=== PATIENT | female | born 1985 | race Caucasian/White ===

== ENCOUNTER 2024-11-13 09:30 | Outpatient (CLI) | payer BC, SELFPAY ==
--- OUTSIDE RECORDS SUMMARY | 2024-11-13 09:54 | XMS_ITS | Encounter Summary ---
Author Organization [facility] Address [address] [place] [address] Phone Care Team Providers Care Legal Investigator Name Role Phone Unknown, Notinfile Primary Care Provider Unavail able Encounter Details Date Type Department Care Team (Late st Contact Info) Description 06/10/2019 Telephone [facility] Reproductive Endocrinology [address] [address] Danica Clayton MD [address] [address] Social History Tobacco Use Types Packs/Day Years Used Date Smoking Tobacco: Never Smokeless Tobacco: Never Alcohol Use Standard Drinks/Week Comments Yes 0 (1 standard drink = 0.6 oz pur e alcohol) AUDIT-C Answer Date Recorded Frequency of Alcohol Consumption Monthly or less 03/17/2019 Average Number of Drinks Not on file 019 Frequency of Binge Drinking Not on file 03/06 Comments Unknown Sex and Gender Information Value Date Recorded Sex Assigned at Not on file Legal Sex Female 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
--- OUTSIDE RECORDS SUMMARY | 2024-11-13 09:54 | XMS_ITS | Clinical Summary ---
Author Organization [facility] Address [address] [place] [address] Care Team Providers Care Dipper And Baker Name Role Phone Olga Butler PA-C Primary Care Provider [phone] Allergies Active Allergy Reactions Criticality Noted Date Comments Penicillins Hives 10/03/2019 Medications SKYRIZI PEN 150 MG/ML Solution Auto-injector 09/11/2022 Activ e Multiple Vitamin (MULTIVITAMIN ADULT OR) Take 1 tablet by mouth daily. Active Cholecalciferol (VITAMIN D-3 OR) Active venlafaxine XR (EFFEXOR-XR) 150 MG 24 hr capsule 1 capsule (150 mg total). 09/27/2023 Active Active Problems Problem Noted Date Diagnosed Date Abnormality of left breast on screening mammogra m 12/11/2023 Resolved Problems Problem Noted Date Diagnosed Date Resolved Date (HHS/HCC) 05/16/2020 05/17/20 20 Immunizations Name Administration Dates Next Due Afluria 36 MONTHS+ (Prefilled Syringe IIV4) 06/06 Hepatitis B 04/07/1998,10/28/1997,09/25/1997 Td, Adsorbed, Preservative F ree, Adult Use, Lf Unspecified 09/25/1997 Tdap (Boostrix) 03/12/2020 Family History Medical History Relation Comments Breast Cancer Maternal Aunt Breast Cancer Paternal Aunt Breast Cancer Paternal Grandmother Relation Status Comments Maternal Aunt Alive Paternal Aunt Alive Paternal Grandmother Social History Tobacco Use Types Packs/Day Years Used Date Smoking Tobacco: Never Smokeless Tobacco: Never Tobacco Cessation:Counseling Given: No Alcohol Use Standard Drinks/Week Comments Never 0 (1 standard drink = 0.6 oz pur e alcohol) AUDIT-C Answer Date Recorded Frequency of Alcohol Consumption Never 10/03/2019 Average Number of Drinks Not on file 020 Frequency of Binge Drinking Not on file 09/07 PHQ-2 Answer Date Recorded Patient Health Questionnaire-2 Score 0 11/17/2022 Comments No Sex and Gender Information Value Date Recorded Sex Assigned at Not on file Legal Sex Female 8:03 PM CDT Gender Identity Not on file Sexual Orientation Not on file Last Filed Vital Signs Vital Sign Reading Time Taken Comments Blood Pressure 146/92 07/22/2024 3:46 PM TECHNICAL ADJUSTER Pulse 87 07/22/2024 3:46 PM TECHNICAL ADJUSTER Temperature 36.7 C (98.1 F) 07/22/2024 3:46 PM TECHNICAL ADJUSTER Respiratory Rate 16 07/22/2024 3:46 PM TECHNICAL ADJUSTER Oxygen Saturation 100% 07/22/2024 3:46 PM TECHNICAL ADJUSTER Inhaled Oxygen Concentration - - Weight 80.3 kg (177 lb) 07/22/2024 3:46 PM TECHNICAL ADJUSTER Height 160 cm (5' 3 ) 01/20/2024 11:22 AM CDT Body Mass Index 31.35 01/20/2024 11:22 AM CDT Plan of Treatment Upcoming Encounters Date Type Department Care Team (Late st Contact Info) Description 01/22/2025 3:40 PM CDT Office Visit [facility] General Surgery - [place] [address] [place] [address], [address] [place] [phone] John Paul Cruz MD [address] [facility] [address] [place] [address] Health Maintenance Due Date Last Done Comments Cervical Cancer Screening Pap Smear (Age 30 to 64) Every 3 Years 1983 Annual Physical 1986 Hepatitis C 2001 Cervical Cancer Screening Pap with HPV Testing (Age 30 to 64) Every 5 Years 05/18/2022 05/18/2017 Cervical Cancer Screening with HPV 05/18/2022 COVID-19 Vaccine ( season) 2024 PHQ-2 (Physician [place]) 08/06/2024 11/17/2022 Mammogram Screening 07/10/2026 07/10/2024, 12/26/2023, 11/22/2023, Additional history exists DTaP, Tdap and Td Vaccines (3 - Td or Tdap) 03/12/2030 03/12/2020, 09/25/1997 Hepatitis B Vaccines Completed 04/07/1998, 10/28/1997, 09/25/1997 HPV Vaccines Aged Out No longer eligi ble based on patient's age to complete this topic Meningococcal B Vaccine Aged Out No l onger eligible based on patient's age to complete this topic Meningococcal Vaccine Aged Out No shravan wendy eligible based on patient's age to complete this topic Pneumococcal Vaccine: Pediatrics (0 to 5 Years) and At-Risk Patients (6 to 64 Years) Aged Out No longer eligible based on patient's age to complete this topic RSV Immunizations Under 20 Months Aged Out No longer eligible based on patient's age to complete this topic Procedures Procedure Name Priority Date/Time Associated Diagnosis Comments MG DIAG W YASMIN LT DIGI Routine 07/10/2024 3:13 PM TECHNICAL ADJUSTER Abnormality of left breast on screening mammogram HPV MRNA E6/E7 Routine 05/18/2017 5:37 PM CDT from Last 3 Months or Most Recently Relevant to Health Maintenance Results * MG DIAG W YASMIN LT DIGI (07/10/2024 3:13 PM TECHNICAL ADJUSTER) Anatomical Region Laterality Modality Breast Left Mammography, Rad iographic Imaging 07/10/2024 3:19 PM TECHNICAL ADJUSTER Impressions 07/10/2024 3:34 PM TECHNICAL ADJUSTER IMPRESSION: Stable left breast mass status post benign concordant biopsy with posterior clip drift. No mammographic or sonographic evidence of malignancy. RECOMMENDATION: Return to year screen in 6 monthsBilateral Findings, impression, and recommendation were discussed with the patient immediately following exam completion. OVERALL IMAGING ASSESSMENT: ACR BI-RADS 2 - BENIGN FINDING(S). Ordered By: JOHN PAUL CRUZ Interpreted By: Sang Cagle, 07/10/2024 3:19 PM Narrative 07/10/2024 3:34 PM TECHNICAL ADJUSTER [address] [address] EXAMINATION: MG OHARA W YASMIN LT DIGI, US BREAST LT BIRAD LTD [id number] INDICATIONS: Follow-up imaging TECHNIQUE: Digital full field CC, ML, MLO diagnostic views of the left breast to include 3-D Tomosynthesis technique. This study was read with the assistance of a computer-aided detection system. Targeted grayscale and color Doppler ultrasound imaging of the left breast. CC compression view with grid guided left breast sonogram. HISTORY: Patient presents for diagnostic follow-up status post benign left breast biopsy-fibroadenomatoid change. No current breast complaint. Family history of breast cancer. COMPARISON: 12/26/2023 and 11/22/2023. TISSUE DENSITY: There are scattered areas of fibroglandular density. FINDINGS: Mammogram: Resolution of prior post biopsy hematoma and/or local anesthetic within the slightly inner mid to posterior depth breast. Biopsy clip in stable positioning proximal to 1.5 cm posterior to persistent ovoid low-density mass with lobulated margins at the slightly upper inner left breast. This mass is slightly decreased in size relative to prebiopsy comparisons. No suspicious microcalcification or mass. No developing asymmetry or architectural distortion. No axillary adenopathy. Sonogram: Again demonstrates an ovoid hypoechoic solid mass with lobulated margins, parallel orientation, and mixed posterior acoustic features. This measures 11 x 6 x 7 mm on today's examination, previously 10 x 6 x 9 mm on baseline sonogram. Biopsy clip is not visualized. No internal vascularity on color Doppler ultrasound. Sonogram with mammographic grid guidance confirms that this mass corresponds with circumscribed mass on mammography. No suspicious mass or posterior acoustic shadowing within the visualized breast. John Paul Cruz MD MAMMO Final Result * HPV MRNA E6/E7 (05/18/2017 5:37 PM CDT) HPV MRNA E6/E7 Not Detected NOT DETECTED 05/22/2017 11:18 PM CDT [employer] SARAH MEAD Comment: This test was performed using the APTIMA(R) HPV Assay([employer]This assay detects E6/E7 viral messenger RNA (mRNA)from 14 high-risk HPV types (16,18,31,33,35,39,45,51,52,56,58,59,66,68).For additional information please refer to:http://education.Cloud[employer]/faq/[email or web address](This link is being provided for informational/educational purposes only.)Test Performed by Fidel Beauchamp,[facility],[address] [place] [id number] Luque M.D., Ph.D., Director of [phone], [facility] [id number] FLUID SPECIMEN / Unknown 05/18/2017 5:37 PM CDT 05/18/2017 5:37 PM CDT us Generic Conversion Md [facility]/CYTOLOGY AMARIS NI Final Result [employer] [address] [address], from Last 3 Months or Most Recently Relevant to Health Maintenance Insurance [phone] Advance Directives * Full Code (Latest Code Status on File) Date Activated Date Inactivated Comments 05/16/2020 6:03 PM 05/18/2020 4:14 PM Care Teams Dipper And Baker Relationship Specialty Start Date End Date Olga Butler PA-C PCP - General NURSE PRACTITIONER 04/04/19
--- OUTSIDE RECORDS SUMMARY | 2024-11-13 09:54 | XMS_ITS | Clinical Summary ---
Author Organization [facility] Address [address] [place] [address] Care Team Providers Care Help Desk Manager Name Role Phone Unavailable Primary Care Provider Unavailabl e Source Comments [facility],non-owned Affiliates and Associated Physician Practices is amultiple site organization consisting of ambulatory clinics and hospital sitesin [place], [place], [place] and [place]. This disclosure is being madepursuant to the Care Everywhere program and may not contain all information available regarding this patient. Last updated 18.[facility] Social History Tobacco Use Types Packs/Day Years Used Date Smoking Tobacco: Never Assessed Sex and Gender Information Value Date Recorded Sex Assigned at Not on file Gender Identity Not on file Sexual Orientation Not on file Plan of Treatment Health Maintenance Due Date Last Done Comments LIPID TESTING 1983 MAMMOGRAM 1983 DTAP/TDAP/TD VACCINES (1 - Tdap) 2002 HEPATITIS B VACCINE (1 of 3 - 19+ 3-dose series) 2002 PAP SMEAR 10/22/2022 COVID-19 VACCINE ( - 2023-2 5 season) 2024 DEPRESSION SCREENING 08/06/2024 INFLUENZA VACCINE (Season Ended) 2025 ZOSTER VACCINE (1 of 2) 2033 HEPATITIS C SCREENING Completed 10/23/2019 HIV SCREENING Completed 10/23/2019 HIB VACCINE Aged Out No longer eligi ble based on patient's age to complete this topic HPV VACCINE Aged Out No longer eligi ble based on patient's age to complete this topic MENINGOCOCCAL (Group B) VACC INE SHARED DECISION-MAKING Aged Out No longer eligibl e based on patient's age to complete this topic MENINGOCOCCAL GROUPS A/C/Y/W VACCINE Aged Out No longer eligible b ased on patient's age to complete this topic PNEUMOCOCCAL VACCINE Aged Out No long er eligible based on patient's age to complete this topic
--- OUTSIDE RECORDS SUMMARY | 2024-11-13 09:54 | XMS_ITS | Clinical Summary ---
Author Organization [facility] Address [address] [place] [address] Care Team Providers Care Building Construction Superintendent Name Role Phone Unknown, Notinfile Primary Care Provider Unavail able Allergies Active Allergy Reactions Criticality Noted Date Comments Milk Penicillins Hives Medium Medications Lactobac no.41/Bifidobact no.7 (PROBIOTIC-10 ORAL) Take by mouth Active ascorbic acid (vitamin C) 1,000 mg tablet Take 1,000 mg by mouth daily Active multivit-min/jonas william fumarate (MULTI VITAMIN ORAL) Take by mouth Active Active Problems No known active problems Surgical History Surgery Date Site/Laterality Comments ORAL SURGERY 08/06/1993 - 08/05/1994 ORAL SURGERY 08/06/2001 - 08/05/2002 KIDNEY STONE SURGERY 08/06/2012 - 08/05/2013 WISDOM TOOTH EXTRACTION 08/06/2005 - 08/05/2006 REFRACTIVE SURGERY 08/06/2017 - 08/05/2018 CHOLECYSTECTOMY 08/06/2018 - 08/05/2019 Medical History Medical History Date Comments Anogenital (venereal) warts Gwen edward warts - (Added by TW Conv) Personal history of other me ntal and behavioral disorders History of obsessive compuls flavio disorder - (Added by TW Conv) Family History Medical History Relation Name Comments COPD Maternal Grandfather Heart failure Maternal Grandmother Obesity Other 1 Obesity - PA, M A (Added by TW Conv) Heart disease Other 2 Heart Disease - MGM, PGM (Added by TW Conv) Hypertension Other 3 Reported Previo us High Blood Pressure - PGF, PGM, Father (Added by TW Conv) Cancer Other 4 Reported Family History Of Cancer - PGF, PGM, MA (Added by TW Conv) Breast cancer Other 5 Breast Cancer - PGM, MA (Added by Conv) COPD Paternal Grandfather Breast cancer Paternal Grandmother Relation Name Status Comments Brother Alive Father Alive Maternal Grandfather Maternal Grandmother Mother Alive Other 1 Other 2 Other 3 Other 4 Other 5 Paternal Grandfather Paternal Grandmother Social History Tobacco Use Types [...] on file Legal Sex Female 9:18 AM MICROSTRATEGY BI DEVELOPER Gender Identity Female 06/25/2019 9:21 PM MICROSTRATEGY BI DEVELOPER Sexual Orientation Not on file Obstetrics History Para Term AB IAB SAB Ectopic Multiple Livin g Live Births 1 0 0 0 0 0 0 0 0 0 0 Date Outcome GA Total Labor Labor//3rd Weight Sex Type Anes PTL Linda A1 A5 Name Clin Last Filed Vital Signs Vital Sign Reading Time Taken Comments Blood Pressure 125/81 10/03/2019 2:15 PM MICROSTRATEGY BI DEVELOPER Pulse 94 10/03/2019 2:15 PM MICROSTRATEGY BI DEVELOPER Temperature - - Respiratory Rate - - Oxygen Saturation - - Inhaled Oxygen Concentration - - Weight 62.6 kg (138 lb) 10/03/2019 2:15 PM MICROSTRATEGY BI DEVELOPER Height 160 cm (5' 3 ) 10/03/2019 2:15 PM MICROSTRATEGY BI DEVELOPER Body Mass Index 24.45 10/03/2019 2:15 PM MICROSTRATEGY BI DEVELOPER Plan of Treatment Not on file Insurance [employer] [place] [address] [place] [phone] Care Teams Building Construction Superintendent Relationship Specialty Start Date End Date Unknown, Notinfile PCP - General 04/11/19
--- OUTSIDE RECORDS SUMMARY | 2024-11-13 09:54 | XMS_ITS | Referral Summary ---
Author Organization [facility] Address [address] [place] [address] Care Team Providers Care Registered Radiologic Technologist Name Role Phone Unknown, Notinfile Primary Care Provider Unavail able Allergies Active Allergy Reactions Criticality Noted Date Comments Milk Penicillins Hives Medium Medications Lactobac no.41/Bifidobact no.7 (PROBIOTIC-10 ORAL) Take by mouth Active ascorbic acid (vitamin C) 1,000 mg tablet Take 1,000 mg by mouth daily Active multivit-min/jonas william fumarate (MULTI VITAMIN ORAL) Take by mouth Active Active Problems No known active problems Social History Tobacco Use Types Packs/Day Years [...] on file Legal Sex Female 9:18 AM POURER OFF Gender Identity Female 06/25/2019 9:21 PM POURER OFF Sexual Orientation Not on file Last Filed Vital Signs Vital Sign Reading Time Taken Comments Blood Pressure 125/81 10/03/2019 2:15 PM POURER OFF Pulse 94 10/03/2019 2:15 PM POURER OFF Temperature - - Respiratory Rate - - Oxygen Saturation - - Inhaled Oxygen Concentration - - Weight 62.6 kg (138 lb) 10/03/2019 2:15 PM POURER OFF Height 160 cm (5' 3 ) 10/03/2019 2:15 PM POURER OFF Body Mass Index 24.45 10/03/2019 2:15 PM POURER OFF Plan of Treatment Not on file Insurance [employer] [place] Care Teams Registered Radiologic Technologist Relationship Specialty Start Date End Date Unknown, Notinfile PCP - General 04/11/19
--- NOTE | 2024-12-01 12:32 | WPDHOMESLEEP ---
Sleep Study - Home Unattended Date of Study: 11/13/24 Ordering Provider: Olga Butler PA-C Interpreting Provider: Soniya Lambert, DO Home Sleep Study Type: Watch PAT Height: 1.6 m Weight: 77.111 kg Body Mass Index: 30.1 Neck Circumference (inches): 14 [place]: 6 Reason for Sleep Study snoring, daytime hypersomnia Sleep History The patient is a 39-year-old female with previously diagnosed sleep apnea that had a sleep study ordered by her primary care for re-evaluation of sleep apnea. The patient admits to excessive daytime sleepiness and loud snoring. She denies interruptions in breathing while asleep. She denies choking or gasping at night. She denies having trouble breathing on her back. She does have morning headaches. She denies having a dry or sore mouth/ throat in the morning. She denies nocturnal heartburn. She denies nocturia. She denies having trouble falling asleep or staying asleep. She denies having difficulty returning to sleep if she wakes up throughout the night. She denies any hypnotic or sedative use. She denies feeling anxious about sleep. She does feel tired or sleepy during the day. She does feel tired in the morning. She does have the urge to fall asleep during the day. She denies feeling drowsy while driving. She denies sleep paralysis, cataplexy and hypnagogic/ hypnopompic hallucinations. She does clench or grind her teeth. She denies kicking or jerking her legs excessively. She denies having a restless feeling in her legs. She goes to bed at 9:30 p.m. on work days and at 10:00 p.m. on her days off. It takes her 15 minutes to fall asleep. She gets 7 hours and 30 minutes of sleep on work days and 8 hours and 30 minutes of sleep on her days off. Her sleep is not at all restorative on her days off. She denies taking any planned naps. She denies dream enactment behavior. She denies sleep walking. She consumes 1-2 cups of caffeinated beverage per day. She denies alcohol and tobacco use. She exercises 5-7 nights per week PMFSH Past Medical History Medical History RAINE on CPAP Anxiety Surgical History Surgical History History of wisdom tooth extraction History of left breast biopsy History of cholecystectomy Family History Family History Father Hypertension Sibling Hypertension Other Family history of cardiovascular disease Family history of malignant neoplasm Social History Social History Social History: 10/23/24 very confident with medical forms. 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 Smoking status: Never smoker Second hand tobacco smoke exposure: No Alcohol intake: current Drinks per week: 1 Substance use: never Substance use type: does not use Do You Feel Safe in your Home?: Yes Lack of Transportation: No Lack of Food: Never True Current Housing: I Have Housing Concerned About Future Housing: No Difficulty Paying Gas/Electric Bills: No Difficulty Paying for Meds: No Currently Unemployed: No Education: Master's Degree or Higher Difficulty w/ Childcare or Family Care: No Living arrangements: with family Occupation/Education: occupation Gender identity (if verbalized by the patient): Female Sexual Orientation (if Verbalized by the Patient): Straight or Heterosexual Medications Home Medications ?Medication ?Instructions ?Recorded ?Confirmed ?Type cholecalciferol (vitamin D3) 75 75 mcg PO DAILY 05/08/22 10/30/24 History mcg (3,000 unit) tablet cefkuxlirjqv-Ap-ylkn-minerals 18 tablet PO 05/08/22 10/30/24 History mg-0.4 mg tablet sertraline 100 mg tablet 100 mg PO DAILY #90 tabs 08/28/24 10/30/24 Rx guselkumab 200 mg/2 mL 200 mg subcut ONCE 10/30/24 10/30/24 History subcutaneous syringe (Tremfya) Sleep Procedure The sleep study was completed using WatchPAT a technically adequate device with seven channels: peripheral arterial tone, actigraphy, body position, snore, respiratory movement, pulse oximetry, sleep staging, and heart rate. Prior to using the device, the patient received verbal and written instructions for its application and was provided with the help desk phone number for additional telephonic instruction with 24-hour availability of qualified personnel to answer questions. The study was scored using CMS guidelines. Sleep Architecture The total recording time is 7 hrs, 22 min. The total sleep time is 6 hrs, 42 min. Sleep latency is 18 minutes. REM latency is 179 minutes. The patient had 7 episodes of waking. Sleep architecture shows 20.6% deep sleep, 50.2% light sleep, and (as % Total Sleep Time) showed NREM (Light 50.2%; Deep 20.6%), and a 29.2% stage REM. The patient spent 22.0% of total sleep time in the supine position. Sleep efficiency was 90.95. Respiratory Analysis The overall AHI (pAHI 4%:) is 4.9. The overall AHI (pAHI 3%:) is 6.9. The central AHI is 2.1. The AHI was 7.0 in NREM and 6.7 in REM sleep. The AHI was 6.1 in Supine and 7.1 in Non-supine sleep. Percent of Berto Weaver respirations is 0.0. Oximetry Data The oxygen desaturation index (ZAINA 4%:) is 4.9. The mean saturation is 96%, and the lowest saturation is 84%. Time spent with saturation < 88% is 0.4 minutes. Snoring Profile Snoring average intensity is 42 dB. The patient snored above 45 decibels for 69.7 minutes, 17.3% of sleep time. Cardiac Profile The average pulse rate is 69 beats per minutes. The lowest pulse rate is 48 bpm. The highest pulse rate reported is 103 bpm. Atrial fibrillation was not detected. Premature beats occur <0.1 per minute. Assessment and Plan Assessment and Plan (1) RAINE (obstructive sleep apnea): Code(s): G47.33 - Obstructive sleep apnea (adult) (pediatric) Status: Acute Assessment and Plan: The patient had an overall AHI of 6.9 with desaturation down to 84%. This is consistent with mild sleep apnea. Due to the patient's anxiety, she qualifies for treatment. I recommend that the patient be prescribed AutoPAP 5-15 cm H2O, CPAP mask/filters/tubing and heated humidity. This should be used with all episodes of sleep.? Compliance should be reviewed within 31-90 days of starting therapy for usage greater than 4 hours per night greater than 70% of the nights. The patient should be asked about symptoms such as?excessive daytime sleepiness, quality of sleep, decreased nocturia, increased?mental functioning such as memory, mood, and concentration. Data The data obtained during this sleep study is adequate for interpretation. Certification This sleep study has been reviewed by a board certified sleep medicine physician.
[2024-12-01 12:40] VITALS: BMI 30.1
== END 2024-11-14 10:23 | disposition home or self-care (01) ==
PROVIDERS: PCP Physician Assistant Medical; Visit Provider Physician Assistant Medical
DX: G47.33 Obstructive sleep apnea (adult) (pediatric) (principal); R40.0 Somnolence
CPT/HCPCS: 95800